=== PATIENT | female | born 1995 | race Caucasian/White ===

== ENCOUNTER 2016-12-30 14:12 | Emergency (ER) | payer OTHER ==
[2016-12-30 14:24] VITALS: BP 106/60
--- NOTE | 2016-12-30 14:58 | UC ---
Throat Pain/Nasal Sameer HPI - HPI Summary HPI Summary: The patient comes in today for: 1. Sore throat, coughing, tight chest, laryngitis (improving): Onset: 4 weeks ago. Palliative/provocative: Rest helps. Quality: Hacking cough. Region: upper respiratory. Severity: 2/10 Time: Cough is episodic. Associated symptoms: Fevers: None recently. Rhinitis: Green Sinus pressure: Present. Cough production: Sometimes productive of brown material. Wheezing: None. Previous inhaler use: Positive, but "in the last six months." * - History of Current Complaint Chief Complaint: UCRespiratory Stated Complaint: SORE THROAT COUGH Time Seen by Provider: 12/30/16 14:53 Hx Obtained From: Patient Hx Last Menstrual Period: December 02, 2016 ?: No - Allergies/Home Medications Allergies/Adverse Reactions: Allergies Allergy/AdvReac Type Severity Reaction Status Date / Time No Known Allergies Allergy Verified 12/30/16 14:26 Home Medications: Home Medications Cholecalciferol [Vitamin D] 12/30/16 [History] Melatonin 12/30/16 [History Confirmed 12/30/16] [place]-3 Fatty Acids [Fish Oil] 12/30/16 [History] Vitamin B Complex CAP* [B Complex CAP*] 12/30/16 [History] PMH/Surg Hx/FS Hx/Imm Hx Previously Healthy: Yes Psychological History: Anxiety, Depression - On no medications for anxiety/ depression. Other History Of: Negative For: HIV, Hepatitis B, Hepatitis C, Anticoagulant Therapy - Surgical History Surgical History: None - Family History Known Family History: Positive: Cardiac Disease Negative: Hypertension - Social History Occupation: Employed Full-time Alcohol Use: Occasionally Substance Use Type: Marijuana Substance Use Comment - Amount & Last Used: today Smoking Status (MU): Never Smoked Tobacco Review of Systems Constitutional: Negative Skin: Negative Eyes: Negative ENT: Sore Throat, Nasal Discharge Respiratory: Cough Cardiovascular: Negative Gastrointestinal: Negative Musculoskeletal: Arthralgia All Other Systems Reviewed And Are Negative: Yes Physical Exam Triage Information Reviewed: Yes Appearance: Well-Appearing, No Pain Distress, Well-Nourished Vital Signs: Initial Vital Signs Temp 98.3 F 12/30/16 14:20 Pulse 97 12/30/16 14:20 Resp 12 12/30/16 14:20 BP 106/60 12/30/16 14:20 Pulse Ox 98 12/30/16 14:20 Vital Signs Reviewed: Yes Eyes: Positive: Conjunctiva Clear. Negative: Discharge ENT: Positive: Hearing grossly normal. Negative: Pharyngeal erythema, Nasal congestion, Nasal drainage, TM bulging, TM dull, TM red, Tonsillar swelling, Tonsillar exudate Dental: Negative: Gross Decay/Caries @, Dental Fracture @ Neck: Positive: Supple, Nontender, No Lymphadenopathy. Negative: Nuchal Rigidity Respiratory: Positive: Lungs clear, No respiratory distress, No accessory muscle use. Negative: Rhonchi, Wheezing Cardiovascular: Positive: RRR, No Murmur Abdomen Description: Positive: Nontender, No Organomegaly, Soft. Negative: Distended, Guarding Musculoskeletal: Positive: Strength Intact, ROM Intact, No Edema Neurological: Positive: Alert, Muscle Tone Normal Psychological: Positive: Age Appropriate Behavior, Consolable Skin: Negative: rashes, breakdown Throat Pain/Nasal Course/Dx - Course Course Of Treatment: Patient was told that the strep test was normal, but it appears that she has bronchitis/sinusitis. - Differential Dx/Diagnosis Differential Diagnosis/HQI/PQRI: Laryngitis, Otitis Media, Tonsillitis Provider Diagnoses: Sinusitis. bronchitis Discharge - Discharge Plan Condition: Stable Disposition: HOME Patient Education Materials: Acute Bronchitis (ED), Sinusitis (ED) Referrals: [facility] [place] [facility] [Outside] Patricia Patten MD [Medical Doctor] - 1 Week (Please see your primary care provider in a week to see how well you are doing if you are still having a problem. If you get worse, please be seen sooner in the ER or through us.)
== END 2016-12-30 15:59 | disposition home or self-care (01) ==
LOC: UCEAST 14:12
DX: J40 Bronchitis, not specified as acute or chronic (principal); J32.9 Chronic sinusitis, unspecified
CPT/HCPCS: 87651; 99211; G0463

== ENCOUNTER 2017-02-26 12:10 | Emergency (ER) | payer OTHER ==
[2017-02-26 13:17] VITALS: BP 121/61
--- NOTE | 2017-02-26 14:05 | UC ---
Throat Pain/Nasal Sameer HPI - HPI Summary HPI Summary: approx 1 month ago was tretaed for bronchitis and sinus infection with augmentin sinus congestion imrpved but still feels like he has chest congestion not sleeping well d/t insomnia non productive cough and feels daniella d to breath has felt feverish and has had chills for several duas no taking any medicaiton for symptoms - History of Current Complaint Hx Obtained From: Patient Hx Last Menstrual Period: NO PERIOD/IUD <Uyen Wang - Last Filed: 02/26/17 14:12> <Liz Abdi - Last Filed: 02/26/17 14:24> - History of Current Complaint Chief Complaint: UCRespiratory Stated Complaint: CHEST CONGESTION, AND COUGH Time Seen by Provider: 02/26/17 13:56 - Allergies/Home Medications Allergies/Adverse Reactions: Allergies Allergy/AdvReac Type Severity Reaction Status Date / Time No Known Allergies Allergy Verified 02/26/17 13:08 Home Medications: Home Medications 5 Htp 1 tab PO DAILY 02/26/17 [History Confirmed 02/26/17] Levonorgestrel (Iud) [Mirena IUD] 1 applic VAGINAL DAILY 02/26/17 [History Confirmed 02/26/17] PMH/Surg Hx/FS Hx/Imm Hx Previously Healthy: Yes Other History Of: Negative For: HIV, Hepatitis B, Hepatitis C, Anticoagulant Therapy - Surgical History Surgical History: None - Family History Known Family History: Positive: Cardiac Disease Negative: Hypertension - Social History Occupation: Employed Full-time Lives: With Family Alcohol Use: Occasionally Substance Use Type: Marijuana Substance Use Comment - Amount & Last Used: today Smoking Status (MU): Never Smoked Tobacco <Uyen Wang - Last Filed: 02/26/17 14:12> Review of Systems Constitutional: Chills Skin: Negative Eyes: Negative ENT: Nasal Discharge Respiratory: Cough Cardiovascular: Negative Gastrointestinal: Negative Genitourinary: Negative Motor: Negative Neurovascular: Negative Musculoskeletal: Negative Neurological: Negative Psychological: Negative All Other Systems Reviewed And Are Negative: Yes <Uyen Wang - Last Filed: 02/26/17 14:12> Physical Exam Triage Information Reviewed: Yes Appearance: No Pain Distress, Well-Nourished Vital Signs: Initial Vital Signs Temp 98.7 F 02/26/17 13:13 Pulse 101 02/26/17 13:13 Resp 16 02/26/17 13:13 BP 121/61 02/26/17 13:13 Pulse Ox 99 02/26/17 13:13 Vital Signs Reviewed: Yes Eyes: Positive: Conjunctiva Clear ENT: Positive: Pharyngeal erythema, Nasal congestion, Nasal drainage, TMs normal , Other: - no sinus tenderness Neck: Positive: No Lymphadenopathy Respiratory: Positive: Lungs clear, Normal breath sounds, No respiratory distress, No accessory muscle use Cardiovascular: Positive: RRR, No Murmur, Pulses Normal, Brisk Capillary Refill Abdomen Description: Positive: Nontender, Soft Bowel Sounds: Positive: Present Musculoskeletal Exam: Normal Neurological: Positive: Alert Psychological Exam: Normal Skin Exam: Normal <Uyen Wang - Last Filed: 02/26/17 14:12> Vital Signs: Initial Vital Signs Temp 98.7 F 02/26/17 13:13 Pulse 101 02/26/17 13:13 Resp 16 02/26/17 13:13 BP 121/61 02/26/17 13:13 Pulse Ox 99 02/26/17 13:13 <Liz Abdi - Last Filed: 02/26/17 14:24> Throat Pain/Nasal Course/Dx - Differential Dx/Diagnosis Differential Diagnosis/HQI/PQRI: Pharyngitis, Tonsillitis, URI Provider Diagnoses: URI <Uyen Wang - Last Filed: 02/26/17 14:12> Discharge <Uyen Wang - Last Filed: 02/26/17 14:12> <Liz Abdi - Last Filed: 02/26/17 14:24> - Discharge Plan Condition: Stable Disposition: HOME Prescriptions: Benzonatate CAP* [Tessalon 100 MG CAP*] 100 mg PO TID #30 cap Patient Education Materials: Upper Respiratory Infection (ED) Referrals: [facility] [place] [facility] [Outside] No Primary Care Phys,NOPCP [Primary Care Provider] - Additional Instructions: Increase fluids and rest Take acetaminophen or ibuprofen for fever or pain Please review your discharge instructions. If your symptoms do not improve please call your primary care provider or return to urgent care. Attestation Statement User Type: Provider - I was available for consult. This patient was seen by the [facility]. The patient was not presented to, seen by, or examined by me. -Goldy <Liz Abdi - Last Filed: 02/26/17 14:24>
== END 2017-02-26 14:14 | disposition home or self-care (01) ==
LOC: UCEAST 12:10
DX: J06.9 Acute upper respiratory infection, unspecified (principal)
CPT/HCPCS: 99212; G0463